=== PATIENT | female | born 1980 | race Caucasian/White ===

== ENCOUNTER 2016-09-19 03:34 | Emergency (ER) | payer MEDICAID, OTHER ==
[2016-09-19 03:45] VITALS: BP 129/105; PULSE 97
--- NOTE | 2016-09-19 04:12 | ERPHSYRPT ---
- History of Present Illness Time Seen by Provider: 09/19/16 03:50 Source: patient Exam Limitations: no limitations Patient Subjective Stated Complaint: REPORTS THAT SHE HAS BEEN HAVING RIGHT SHOULDER PAIN SINCE JULY (AFTER ) - THE DOCTOR SAID ITS A TORN MUSCLE - REPORTS INTERMITTENT NUMBNESS DOWN THE RIGHT ARM SINCE AUGUST - REPORTS THAT TONIGHT THE PAIN IS BEGINNING TO AFFECT THE "UPPER BACK AND LOWER BACK AND IT IS EXCRUCIATING AND UNBEARABLE AND CONSTANT AND BAD AND NOT NORMAL AND AWOKE HER FROM SLEEP" Triage Nursing Assessment: AMBULATORY TO TREATMENT AREA - STEADY GAIT - MOVES ALL EXTREMITIES WITH EQUAL STRENGTH. ALERT/ORIENTED - HYSTRIONIC AFFECT. RESPS EASY - NON-LABORED - SHALLOW PER PAIN. SKIN PWD - NO RASH/INJURY Physician History: SINCE JULY 2016 PT HAS HAD RIGHT SHOULDER PAIN RADIATING TO THE RIGHT HAND AND UP THE RIGHT SIDE OF HER NECK WITH NO RECENT INJURY. PT ALSO C/O CHILLS FOR THE PAST 5.5 HOURS, SHORTNESS OF AIR FOR THE PAST 2 HOURS AND MIGRAINE HEADACHES FOR YEARS. Allergies/Adverse Reactions: acetaminophen [From [place]] Allergy (Verified 09/19/16 03:45) aspirin Allergy (Verified 09/19/16 03:45) flu vaccine 2012- *RETIRED-10/08/12 [flu vaccine [id number] (18 yr+)] Allergy ( Verified 09/19/16 03:45) hydrocodone bitartrate [From [place]] Allergy (Verified 09/19/16 03:45) latex Allergy (Verified 09/19/16 03:45) lithium [Oral] Allergy (Verified 09/19/16 03:45) reagan [Reagan] Allergy (Verified 09/19/16 03:45) EGGS Allergy (Uncoded 09/19/16 03:45) Hx Tetanus, Diphtheria Vaccination/Date Given: Yes Hx Influenza Vaccination/Date Given: No Hx Pneumococcal Vaccination/Date Given: No Immunizations Up to Date: Yes - Review of Systems Constitutional: Chills Respiratory: Dyspnea Musculoskeletal: Joint Pain (RIGHT SHOULDER PAIN) Neurological: Headache All Other Systems: Reviewed and Negative - Past Medical History Pertinent Past Medical History: Yes Neurological History: Migraines GI Medical History: Gallbladder Disease, Other Psycho-Social History: Bipolar, Depression Other Medical History: HS OF [place] DRUG USE - Past Surgical History Past Surgical History: Yes Gastrointestinal: Cholecystectomy Female Surgical History: Dilation & Curettage Other Surgical History: "SX FOR GALLSTONES", D&C, - Social History Smoking Status: Never smoker Exposure to second hand smoke: No Drug Use: none Patient Lives Alone: No - Female History Hx Last Menstrual Period: 09/11/2016 Hx Now: No - Nursing Vital Signs Nursing Vital Signs: Initial Vital Signs Temperature 97.8 F Temperature Source Oral Pulse Rate 97 Respiratory Rate 22 Blood Pressure [] 129/105 Pain Intensity 10 - Physical Exam General Appearance: alert, anxiety Eye Exam: PERRL/EOMI Ears, Nose, Throat Exam: pharynx normal Neck Exam: normal inspection Respiratory Exam: lungs clear Cardiovascular Exam: normal heart sounds Gastrointestinal/Abdomen Exam: soft, normal bowel sounds Back Exam: normal range of motion Extremity Exam: normal range of motion Neurologic Exam: alert, cooperative Skin Exam: warm, dry SpO2 Interpretation: normal SpO2: 97 Oxygen Delivery: Room Air - Course Nursing assessment & vital signs reviewed: Yes EKG Interpreted by Me: RATE (80), Sinus Rhythm, NORMAL AXIS, NORMAL INTERVALS - Radiology Exams Chest X-ray Interpretation: Interpreted by me, No Pneumonia Right Shoulder X-ray Interpretation: Interpreted by me, No Fracture Ordered Tests: Active Orders 24 hr Category Date Time Status Licensed Funeral Director STAT Care 09/19/16 04:00 Active EKG-ER Only STAT Care 09/19/16 04:00 Active Pulse Oximetry (ED) STAT Care 09/19/16 04:00 Active Sling Application STAT Care 09/19/16 05:13 Active CHEST 2 VIEWS (PA AND LAT) Stat Exams 09/19/16 03:58 Taken SHOULDER Stat Exams 09/19/16 03:58 Taken AMYLASE Stat Lab 09/19/16 04:18 Completed CBC W DIFF Stat Lab 09/19/16 04:18 Completed CMP Stat Lab 09/19/16 04:18 Completed HCG QUALITATIVE,SERUM Stat Lab 09/19/16 04:18 Completed LIPASE Stat Lab 09/19/16 04:18 Completed MAGNESIUM Stat Lab 09/19/16 04:18 Completed TROPONIN Stat Lab 09/19/16 04:18 Completed UA Stat Lab 09/19/16 04:10 Completed Urine Triage Profile Stat Lab 09/19/16 04:10 Completed Lab/Rad Data: Laboratory Result Diagrams 09/19/16 04:18 09/19/16 04:18 Laboratory Results 09/19/16 09/19/16 09/19/16 Range/Units 04:18 04:18 04:18 WBC (4.0-10.5) K/mm3 RBC (4.1-5.4) M/mm3 Hgb (12.0-16.0) gm/dl Hct (35-47) % MCV (78-100) fl MCH (26-32) pg MCHC (32-36) g/dl RDW (11.5-14.0) % Plt Count (150-450) K/mm3 MPV (6-9.5) fl Gran % (36.0-66.0) % Lymphocytes % (24.0-44.0) % Monocytes % (0.0-12.0) % Eosinophils % (0.00-5.0) % Basophils % (0.0-0.4) % Basophils # (0-0.4) Sodium 141 (136-145) mEq/L Potassium 3.8 (3.5-5.1) mEq/L Chloride 106 (98-107) mEq/L Carbon Dioxide 23.4 (21-32) mEq/L Anion Gap 15.5 H (5-15) MEQ/L BUN 10 (9-20) mg/dL Creatinine 0.85 (0.55-1.30) mg/dl Estimated GFR > 60 ML/MIN Glucose 96 (70-110) MG/DL Calcium 8.5 (8.5-10.1) mg/dL Magnesium 1.9 (1.8-2.4) mg/dL Total Bilirubin 0.3 (0.2-1.0) mg/dL AST 11 L (15-37) U/L ALT 19 (12-78) U/L Alkaline Phosphatase 110 (46-116) U/L Troponin I < 0.017 (0.000-0.056) ng/ml Serum Total Protein 7.7 (6.4-8.2) gm/dL Albumin 3.2 L (3.4-5.0) g/dL Amylase 24 L (25-115) U/L Lipase 80 (73-393) U/L Serum , Qual NEGATIVE (Negative) Ur Collection Type Urine Color (YELLOW) Urine Appearance (CLEAR) Urine pH (5-6) Ur Specific [place] (1.005-1.025) Urine Protein (Negative) Urine Glucose (UA) (NEGATIVE) mg/dL Urine Ketones (NEGATIVE) Urine Nitrite (NEGATIVE) Urine Bilirubin (NEGATIVE) Urine Urobilinogen (0-1) mg/dL Urine WBC (Auto) (NEGATIVE) Urine RBC (Auto) (0-5) Errol/ul Urine Opiates Level (NEGATIVE) Ur Methadone (NEGATIVE) Urine Barbiturates (NEGATIVE) Ur Phencyclidine (PCP) (NEGATIVE) Urine Amphetamine (NEGATIVE) U Benzodiazepine Level (NEGATIVE) Urine Cocaine (NEGATIVE) Urine Marijuana (THC) (NEGATIVE) Specimen Received 09/19/16 09/19/16 09/19/16 Range/Units 04:18 04:10 04:10 WBC 10.1 (4.0-10.5) K/mm3 RBC 4.18 (4.1-5.4) M/mm3 Hgb 11.6 L (12.0-16.0) gm/dl Hct 35.9 (35-47) % MCV 85.9 (78-100) fl MCH 27.7 (26-32) pg MCHC 32.3 (32-36) g/dl RDW 13.1 (11.5-14.0) % Plt Count 418 (150-450) K/mm3 MPV 10.9 H (6-9.5) fl Gran % 65.8 (36.0-66.0) % Lymphocytes % 22.6 L (24.0-44.0) % Monocytes % 9.1 (0.0-12.0) % Eosinophils % 2.1 (0.00-5.0) % Basophils % 0.4 (0.0-0.4) % Basophils # 0.04 (0-0.4) Sodium (136-145) mEq/L Potassium (3.5-5.1) mEq/L Chloride (98-107) mEq/L Carbon Dioxide (21-32) mEq/L Anion Gap (5-15) MEQ/L BUN (9-20) mg/dL Creatinine (0.55-1.30) mg/dl Estimated GFR ML/MIN Glucose (70-110) MG/DL Calcium (8.5-10.1) mg/dL Magnesium (1.8-2.4) mg/dL Total Bilirubin (0.2-1.0) mg/dL AST (15-37) U/L ALT (12-78) U/L Alkaline Phosphatase (46-116) U/L Troponin I (0.000-0.056) ng/ml Serum Total Protein (6.4-8.2) gm/dL Albumin (3.4-5.0) g/dL Amylase (25-115) U/L Lipase (73-393) U/L Serum , Qual (Negative) Ur Collection Type CLEAN CATCH Urine Color YELLOW (YELLOW) Urine Appearance CLEAR (CLEAR) Urine pH 6.0 (5-6) Ur Specific [place] 1.015 (1.005-1.025) Urine Protein NEGATIVE (Negative) Urine Glucose (UA) NEGATIVE (NEGATIVE) mg/dL Urine Ketones NEGATIVE (NEGATIVE) Urine Nitrite NEGATIVE (NEGATIVE) Urine Bilirubin NEGATIVE (NEGATIVE) Urine Urobilinogen 0.2 (0-1) mg/dL Urine WBC (Auto) NEGATIVE (NEGATIVE) Urine RBC (Auto) NEGATIVE (0-5) Errol/ul Urine Opiates Level NEG. (NEGATIVE) Ur Methadone NEG. (NEGATIVE) Urine Barbiturates NEG. (NEGATIVE) Ur Phencyclidine (PCP) NEG. (NEGATIVE) Urine Amphetamine NEG. (NEGATIVE) U Benzodiazepine Level NEG. (NEGATIVE) Urine Cocaine NEG. (NEGATIVE) Urine Marijuana (THC) NEG. (NEGATIVE) Specimen Received 09/19/16:0410 - Departure Time of Disposition: 05:13 Departure Disposition: Home Clinical Impression: BURSITIS RIGHT SHOULDER , DYSPNEA Condition: Fair Critical Care Time: No Referrals: DOCTOR,NO FAMILY [Primary Care Provider] - Instructions: Bursitis Additional Instructions: FOLLOW UP WITH PRIVATE DOCTOR TOMORROW. WEAR RIGHT SHOULDER SLING FOR COMFORT. Prescriptions: Naproxen [Naprosyn] 500 mg PO Q12H PRN PRN #20 tablet PRN Reason: Pain
[2016-09-19 04:22] LABS: BASOPHIL % 0.4 % (0.0-0.4); Eosinophil % 2.1 % (0.00-5.0); Granulocytes % 65.8 % (36.0-66.0); Lymphocytes % 22.6 % (24.0-44.0); Mean Cell Volume 85.9 fl (78-100); Mean Platelet Volume 10.9 fl (6-9.5); Monocytes % 9.1 % (0.0-12.0); Platelet Count 418 K/mm3 (150-450); Red Blood Count 4.18 M/mm3 (4.1-5.4); Red Cell Distribution Width 13.1 % (11.5-14.0); White Blood Count 10.1 K/mm3 (4.0-10.5)
[2016-09-19 04:26] LABS: COMPLETE URINE MICROSCOPIC? NO; Collection Type CLEAN CATCH
[2016-09-19 04:27] LABS: Mean Corpuscular Hemoglobin 27.7 pg (26-32)
[2016-09-19 04:49] LABS: ALBUMIN 3.2 g/dL (3.4-5.0); ALKALINE PHOSPHATASE 110 U/L (46-116); ANION GAP 15.5 MEQ/L (5-15); BILIRUBIN,TOTAL 0.3 mg/dL (0.2-1.0); BLOOD UREA NITROGEN 10 mg/dL (9-20); CHLORIDE 106 mEq/L (98-107); Carbon Dioxide 23.4 mEq/L (21-32); Glucose 96 MG/DL (70-110); LIPASE 80 U/L (73-393); MAGNESIUM 1.9 mg/dL (1.8-2.4); Potassium 3.8 mEq/L (3.5-5.1); SGOT/AST 11 U/L (15-37); SGPT/ALT 19 U/L (12-78); SODIUM 141 mEq/L (136-145); Total Protein 7.7 gm/dL (6.4-8.2)
[2016-09-19 05:10] VITALS: O2SAT 97
[2016-09-19] MEDS ORDERED: ULTRAM 50 MG PO ONE (05:13)
[2016-09-19] MEDS ORDERED: ULTRAM 50 MG ONE (05:15)
--- NOTE | 2016-09-19 09:17 | XRAY ---
Indication: Chest pain. Comparison: None PA/lateral chest underinflated with bibasilar infiltrates versus atelectasis right greater than left. Also small right effusion suggested on the lateral view. Upper lungs clear. Heart is not enlarged. Bony thorax intact. Impression: Bibasilar infiltrates/atelectasis with right effusion. Correlate clinically.
--- NOTE | 2016-09-19 09:20 | XRAY ---
Indication: Chest pain. Comparison: None 3 views of the right shoulder obtained. No bony or articular abnormalities. Chest reported separately.
== END 2016-09-19 06:01 | disposition home or self-care (01) ==
LOC: ED 03:34
DX: M75.51 Bursitis of right shoulder (principal); R06.00 Dyspnea, unspecified
CPT/HCPCS: 36415; 71020; 73030; 80053; 80307; 81002; 82150; 83690; 83735; 84484; 84703; 85025; 93005; 93041; 99284; A9270-GY